=== PATIENT | male | born 1980 | race Two or more races ===

== ENCOUNTER 2017-07-14 17:30 | Emergency (ER) | payer SELFPAY ==
[~2017-07-14] VITALS: Ht 165.1 cm; Wt 72.6 kg
--- NOTE | 2017-07-14 17:30 | NUR ---
36 YO MALE BB RA FROM STREETS. PATIENT IS ALERT TO SELF, EMS BROUGHT PATIENT TO ED FOR EVALUATION. NO DISTRESS NOTED, SKIN WARM AND DRY, RR EVEN AND UNLABORED. WILL CONITINUE TO MONITOR
[2017-07-14 18:26] LABS: BASOPHILS # (AUTO) 0.1 /CMM (0.0-0.2); BASOPHILS % (AUTO) 0.5 % (0.0-2.0); EOSINOPHILS # (AUTO) 0.2 /CMM (0.0-0.7); HEMATOCRIT 50 % (39-51); HEMOGLOBIN 17.1 g/dL (13.5-17.5); LYMPHOCYTES # (AUTO) 0.9 /CMM (0.8-4.8); MEAN CORPUSCULAR HEMOGLOBIN 29 PG (26.0-33.0); MEAN CORPUSCULAR HGB CONC 35 g/dl (31.0-36.0); MEAN CORPUSCULAR VOLUME 83 fL (80-96); MONOCYTES # (AUTO) 0.6 /CMM (0.1-1.30); MONOCYTES % (AUTO) 3.2 % (2.0-12.0); NEUTROPHILS # (AUTO) 16.8 /CMM (1.8-8.9); NEUTROPHILS % (AUTO) 90.3 % (43.0-81.0); PLATELET COUNT (AUTO) 229 /CMM (150-450); RDW COEFFICIENT OF VARIATION 12.4 (11.5-15.0); RED BLOOD CELL COUNT(AUTO) 5.96 MIL/uL (4.5-6.0); WHITE BLOOD COUNT (AUTO) 18.6 K/uL (4.3-11.0)
[2017-07-14 18:35] LABS: CALCIUM, SERUM 9.9 mg/dL (8.5-10.1); CARBON DIOXIDE 24 mmol/L (21-32); CHLORIDE 96 mmol/L (98-107); CREATININE 2.1 mg/dL (0.6-1.3); GLUCOSE 99 mg/dL (74-106); POTASSIUM 3.6 mmol/L (3.5-5.1); SODIUM SERUM 138 mmol/L (136-145); UREA NITROGEN, BLOOD 28 mg/dL (7-18)
[2017-07-14 18:41] LABS: ALANINE AMINOTRANSFERASE 33 U/L (12-78); ALBUMIN 4.5 g/dL (3.4-5.0); ALKALINE PHOSPHATASE 131 U/L (46-116); ASPARTATE AMINOTRANSFERASE 35 U/L (15-37); BILIRUBIN,DIRECT 0.2 mg/dL (0.0-0.2); BILIRUBIN,TOTAL 0.9 mg/dL (0.2-1.0); SALICYLATE 19.3 mg/dL (2.8-20.0); TOTAL PROTEIN, SERUM 8.9 g/dL (6.4-8.2)
[2017-07-14 18:44] LABS: ACETAMINOPHEN 0 ug/ml (10-30); ALCOHOL, BLOOD < 3 mg/dL (0-0)
[2017-07-14] MEDS ORDERED: LORAZEPAM INJ 2 MG/ML VIAL ONE (19:59)
[2017-07-14] MEDS: LORAZEPAM INJ 2 MG/ML VIAL IM ONE (20:00)
--- NOTE | 2017-07-14 23:30 | NUR ---
PATIENT IS RESTING IN ER BED, NO DISTRESS NOTED, SKIN WARM AND DRY. 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
--- NOTE | 2017-07-15 02:10 | NUR ---
PATIENT IS RESTING IN ER BED, NO DISTRESS NOTED, SKIN WARM AND DRY. 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
[2017-07-15 06:05] VITALS: BP 116/63
--- NOTE | 2017-07-15 06:05 | NUR ---
Patient given written and verbal discharge instructions. Patient verbalizes understanding of instructions. Patient is ambulatory with steady gait. Refuses offer of [facility] placement. Patient given list of available shelters in surrounding area.
== END 2017-07-15 06:06 | disposition home or self-care (01) ==
LOC: ER 17:33
DX: F23 Brief psychotic disorder (principal); F15.10 Other stimulant abuse, uncomplicated; N17.9 Acute kidney failure, unspecified; J45.909 Unspecified asthma, uncomplicated
CPT/HCPCS: 36415; 71045; 80048; 80076; 80329; 85025; 96372; 99285; A4606; G0480 ×2; J2060; Z7610